=== PATIENT | female | born 1990 | race Caucasian/White ===

== ENCOUNTER 2017-01-15 19:23 | Emergency (ER) | payer OTHER ==
[~2017-01-15] VITALS: Ht 152.4 cm; Wt 112.1 kg
[2017-01-15 19:28] VITALS: TEMP 37.3; Ht 152.4 cm; Wt 112.1 kg
[2017-01-15] MEDS ORDERED: KETOROLAC TROMETHAMINE 30 MG/ML VIAL IV STA (19:44)
[2017-01-15] MEDS ORDERED: SODIUM CHLORIDE 0.9% 1000ML 1,000 ML IV ONE (19:45)
[2017-01-15 19:50] VITALS: O2SAT 96
[2017-01-15 20:22] LABS: BASO % 0.3 %; BASO ABS # 0.03 K/uL (0-0.2); COMPLETE YES; EOS % 0.5 %; HEMATOCRIT 46.6 % (37-47); IG% 0.2 %; LYMPH % 40.2 %; LYMPH ABS # 3.91 K/uL (1.2-3.4); MEAN CELL VOLUME 87.6 fL (80-100); MEAN CORPUSCULAR HEMOGLOBIN 31.8 pg (25-34); MEAN CORPUSCULAR HGB CONC 36.3 g/dl (32-36); MEAN PLATELET VOLUME 10.9 fL (7.4-10.4); MONO % 6.6 %; NEUT % 52.2 %; PLATELET COUNT 225 K/uL (130-400); RED BLOOD COUNT 5.32 M/uL (4.2-5.4); WHITE BLOOD COUNT 9.73 K/uL (4.8-10.8)
[2017-01-15 20:27] LABS: POINT OF CARE TROPONIN I < 0.030 ng/ml (0-0.045)
[2017-01-15 20:37] LABS: PROTHROMBIN TIME (PATIENT) 10.5 SECONDS (9.0-12.0)
[2017-01-15] MEDS ORDERED: BUSP-8 PO (20:39)
[2017-01-15] MEDS ORDERED: EFF75 PO (20:39)
[2017-01-15] MEDS ORDERED: NVLGI/PEN SC (20:39)
[2017-01-15] MEDS ORDERED: INSDGIPEN SC (20:39)
[2017-01-15] MEDS ORDERED: GLC/500 PO (20:39)
[2017-01-15 20:42] LABS: BUN/CREATININE RATIO 15.4 (10-20); CREATININE 0.78 mg/dl (0.60-1.20); MAGNESIUM 1.9 mg/dl (1.8-2.4); POTASSIUM 3.9 mmol/L (3.5-5.1)
[2017-01-15 20:53] LABS: THYROID STIMULATING HORMONE 3.16 uIu/ml (0.300-4.500)
[2017-01-15 20:57] VITALS: O2SAT 96
[2017-01-15 21:08] LABS: URINE APPEARANCE CLEAR (CLEAR); URINE BILIRUBIN NEG (NEG); URINE COLOR YELLOW; URINE NITRITE NEG (NEG); URINE PH 6.5 (4.5-7.5); URINE SPECIFIC GRAVITY 1.031 (1.000-1.030); UROBILINOGEN NEG (NEG); ZZUR CULT IF INDIC CLEAN CATCH NO
[2017-01-15 21:09] LABS: MANUAL MICROSCOPIC REQUIRED? NO; REVIEW REQ? NO
--- NOTE | 2017-01-15 21:20 | DIAGNOSTIC IMAGING REPORT ---
CHEST 2 VIEWS ROUTINE CLINICAL HISTORY: chest pain dyspnea COMPARISON STUDY: No previous studies for comparison. FINDINGS: The bones soft tissues and hemidiaphragms are normal. The cardiomediastinal silhouette is normal. The lungs are clear. The pulmonary vasculature is normal. IMPRESSION: Negative chest. The above report was generated using voice recognition software. It may contain grammatical, syntax or spelling errors. Electronically signed by: Jerome Rice M.D. 01/15/2017 9:18 PM Dictated Date/Time: 01/15/2017 9:18 PM
[2017-01-15 22:19] VITALS: BP 130/81; PULSE 108
--- NOTE | 2017-01-16 00:05 | EMERGENCY ROOM VISIT NOTE ---
History First contact with patient: 19:30 Chief Complaint: CHEST PAIN Stated Complaint: CHEST PAIN,DIZZY,LIGHTHEADED,NUMBNESS,TINGLING R A Nursing Triage Summary: WOKE UP YESTERDAY WITH CHEST PAIN CONSTANT SINCE History of Present Illness The patient is a 26 year old female who presents to the Emergency Room with complaints of chest pain that has persisted for the past one day. The patient states that she has intermittent pain that radiates down her right arm. She states that she has a tingling sensation at times in her hands. She has not had fever or chills. No difficulty breathing or dyspnea on exertion. The patient is diabetic and states that her sugars have been doing well. She denies chance of . She has not started new medication or had recent travel history. She rates her current discomfort a 2/10. Review of Systems More than 10 systems were reviewed and otherwise negative with the exception of history of present illness. Past Medical/Surgical History Diabetes Family History No pertinent family history Social History Smoking Status: Never Smoker Housing Status: lives with family Current/Historical Medications Scheduled Buspirone Hcl (Buspirone Hcl), 10 MG PO DAILY Insulin Aspart (Novolog Flexpen), 1 DOSE SC UD Insulin Glargine (Lantus Solostar), 28 UNITS SC HS Metformin Hcl (Glucophage), 500 MG PO BID Venlafaxine Hcl (Effexor), 187.5 MG PO DAILY Physical Exam Vital Signs Date Time Temp Pulse Resp B/P (MAP) Pulse Ox O2 Delivery O2 Flow Rate FiO2 01/15/17 22:19 108 16 130/81 01/15/17 20:57 94 16 170/89 96 Room Air 01/15/17 19:57 98 16 161/110 96 Room Air 01/15/17 19:50 96 Room Air 01/15/17 19:48 107 01/15/17 19:28 37.3 122 20 133/89 96 Room Air Pain Rating (0-10): 4.0 Physical Exam VITALS: Vitals are noted on the nurse's note and reviewed by myself. Vital signs stable. GENERAL: Well-developed, well-nourished, white female, who is in no acute distress and resting comfortably. Patient is cooperative with the examination. HEAD: Normocephalic atraumatic. NECK: Supple without nuchal rigidity. No lymphadenopathy. No thyromegaly. Cervical spine is nontender. HEART: Regular rate and rhythm without murmurs gallops or rubs. LUNGS: Clear to auscultation bilaterally without wheezes, rales or rhonchi. No retractions or accessory muscle use. CHEST WALL: Reproducible tenderness along the anterior sternum ABDOMEN: Positive normal bowel sounds x 4. Soft, nontender, without masses or organomegaly. No guarding or rebound tenderness. MUSCULOSKELETAL: No muscle atrophy, erythema, or edema noted. Full range of motion without joint tenderness in all extremities. No tenderness to palpation. Normal gait. Strength 5/5 throughout. NEURO: Patient was alert and oriented to person place and time. CN II through XII grossly intact. Medical Decision & Procedures ER Provider Diagnostic Interpretation: CHEST 2 VIEWS ROUTINE CLINICAL HISTORY: chest pain dyspnea COMPARISON STUDY: No previous studies for comparison. FINDINGS: The bones soft tissues and hemidiaphragms are normal. The cardiomediastinal silhouette is normal. The lungs are clear. The pulmonary vasculature is normal. IMPRESSION: Negative chest. Laboratory Results 01/15/17 20:02 Red Blood Count 5.32, Mean Corpuscular Volume 87.6, Mean Corpuscular Hemoglobin 31.8, Mean Corpuscular Hemoglobin Concent 36.3, Mean Platelet Volume 10.9, Neutrophils (%) (Auto) 52.2, Lymphocytes (%) (Auto) 40.2, Monocytes (%) (Auto) 6.6, Eosinophils (%) (Auto) 0.5, Basophils (%) (Auto) 0.3, Neutrophils # (Auto) 5.08, Lymphocytes # (Auto) 3.91, Monocytes # (Auto) 0.64, Eosinophils # (Auto) 0.05, Basophils # (Auto) 0.03 01/15/17 20:02 Test 01/15/17 19:45 01/15/17 20:02 01/15/17 20:07 Urine Color YELLOW Urine Appearance CLEAR (CLEAR) Urine pH 6.5 (4.5-7.5) Urine Specific [place] 1.031 (1.000-1.030) Urine Protein NEG (NEG) Urine Glucose (UA) 2+ (NEG) Urine Ketones TRACE (NEG) Urine Occult Blood NEG (NEG) Urine Nitrite NEG (NEG) Urine Bilirubin NEG (NEG) Urine Urobilinogen NEG (NEG) Urine Leukocyte Esterase NEG (NEG) Urine Test NEG (NEG) White Blood Count 9.73 K/uL (4.8-10.8) Red Blood Count 5.32 M/uL (4.2-5.4) Hemoglobin 16.9 g/dL (12.0-16.0) Hematocrit 46.6 % (37-47) Mean Corpuscular Volume 87.6 fL (80-100) Mean Corpuscular Hemoglobin 31.8 pg (25-34) Mean Corpuscular Hemoglobin Concent 36.3 g/dl (32-36) Platelet Count 225 K/uL (130-400) Mean Platelet Volume 10.9 fL (7.4-10.4) Neutrophils (%) (Auto) 52.2 % Lymphocytes (%) (Auto) 40.2 % Monocytes (%) (Auto) 6.6 % Eosinophils (%) (Auto) 0.5 % Basophils (%) (Auto) 0.3 % Neutrophils # (Auto) 5.08 K/uL (1.4-6.5) Lymphocytes # (Auto) 3.91 K/uL (1.2-3.4) Monocytes # (Auto) 0.64 K/uL (0.11-0.59) Eosinophils # (Auto) 0.05 K/uL (0-0.5) Basophils # (Auto) 0.03 K/uL (0-0.2) RDW Standard Deviation 40.7 fL (36.4-46.3) RDW Coefficient of Variation 12.8 % (11.5-14.5) Immature Granulocyte % (Auto) 0.2 % Immature Granulocyte # (Auto) 0.02 K/uL (0.00-0.02) Prothrombin Time 10.5 SECONDS (9.0-12.0) Prothromb Time International Ratio 1.0 (0.9-1.1) Activated Partial Thromboplast Time 25.5 SECONDS (21.0-31.0) Partial Thromboplastin Ratio 1.0 Anion Gap 6.0 mmol/L (3-11) Est Creatinine Clear Calc Drug Dose 124.5 ml/min Estimated GFR () 121.6 Estimated GFR (Non- 104.9 BUN/Creatinine Ratio 15.4 (10-20) Calcium Level 9.0 mg/dl (8.5-10.1) Magnesium Level 1.9 mg/dl (1.8-2.4) Total Bilirubin 0.3 mg/dl (0.2-1) Aspartate Amino Transf (AST/SGOT) 18 U/L (15-37) Alanine Aminotransferase (ALT/SGPT) 33 U/L (12-78) Alkaline Phosphatase 60 U/L (45-117) Total Protein 7.8 gm/dl (6.4-8.2) Albumin 3.8 gm/dl (3.4-5.0) Globulin 4.0 gm/dl (2.5-4.0) Albumin/Globulin Ratio 1.0 (0.9-2) Lipase 138 U/L (73-393) Thyroid Stimulating Hormone (TSH) 3.160 uIu/ml (0.300-4.500) Bedside D-Dimer 363 ng/mlFEU (0-450) Bedside Troponin I < 0.030 ng/ml (0-0.045) Medications Administered Medications (Trade) Dose Ordered Sig/Don Route Start Time Stop Time Status Last Admin Dose Admin Sodium Chloride 1,000 ml @ 999 mls/hr Q1H1M ONCE IV 01/15/17 19:45 01/15/17 20:45 DC 01/15/17 20:13 999 MLS/HR Ketorolac Tromethamine (Toradol Inj) 30 mg NOW STAT IV 01/15/17 19:44 01/15/17 19:45 DC 01/15/17 20:12 30 MG ED Course Physical exam and history were performed. Nursing notes, EMR, and Medication List were personally reviewed. Patient appears to have central and right-sided chest pain for the past one day. The patient does not appear toxic on examination, and does have reproducible tenderness in the area that she is having discomfort. IV access was established and labs were obtained. Chest x-ray was performed. EKG was sinus tachycardia without ischemia or ectopy. The patient was hydrated with normal saline and given IV Toradol for comfort. The patient's blood work is as above and was reviewed. She does not have a significantly elevated white blood cell count, gross anemia, bandemia, or significant electrolyte imbalance. Lipase and transaminases are nondiagnostic. Troponin and d-dimer 1 are both negative. X-ray is without acute findings. Overall the patient appears stable for discharge home. She does not appear to have an acute cardiopulmonary event. Her symptoms are most consistent with a pleuritic type chest pain or possible musculoskeletal etiology. The patient may also have increased stressors or anxiety contribute into her symptoms. She is to follow with her PCP after the weekend for recheck. She was otherwise invited back to the ER with any new, worsening, or concerning symptoms. The chart was completed utilizing [employer] Speech Voice Recognition Software. Grammatical errors, random word insertions, pronoun errors, and incomplete sentences are an occasional consequence of this system due to software limitations, ambient noise, and hardware issues. Any formal questions or concerns about the content, text, or information contained within the body of this dictation should be directly addressed to the provider for clarification. . Medical Decision Differential diagnosis includes, but is not limited to: Myocardial infarction, dysrhythmia, pericarditis, pneumothorax, aortic aneurysm/dissection, DVT/PE, anxiety, GERD, PUD, electrolyte imbalance, thyroid disorder, pneumonia, bronchitis, pancreatitis, and others Impression Primary Impression: Chest pain Departure Information Dispostion Home / Self-Care Condition GOOD Forms HOME CARE DOCUMENTATION FORM, IMPORTANT VISIT INFORMATION Patient Instructions [facility] Additional Instructions You were seen and evaluated today on an emergency basis only. This is not a substitute for, or an effort to provide, complete comprehensive medical care. It is not possible to recognize and treat all injuries or illnesses in a single emergency department visit. For this reason it is recommended that you followup with your primary care physician next week for ongoing care and evaluation. For baseline pain relief you may alternate ibuprofen and acetaminophen every 4 hours for pain control. Take 600 mg ibuprofen (Advil) and then 4 hours later take 1000 mg acetaminophen (Tylenol). Do not take more than 3000 mg acetaminophen in a single day. Drink plenty of fluids and remain well hydrated. You are welcome to return to the emergency department anytime with new, worsening, or concerning symptoms.
== END 2017-01-15 22:21 | disposition home or self-care (01) ==
LOC: C.EDB 19:25 → C.EDA 22:21
DX: R07.9 Chest pain, unspecified (principal); E11.9 Type 2 diabetes mellitus without complications; R00.0 Tachycardia, unspecified; Z79.4 Long term (current) use of insulin; Z79.84 Long term (current) use of oral hypoglycemic drugs